=== PATIENT | female | born 1950 | race Caucasian/White ===

== ENCOUNTER 2016-04-18 16:26 | Emergency (ER) | payer MEDICARE, MEDICAID ==
[2016-04-18 17:26] VITALS: BP 121/79
[2016-04-18] MEDS ORDERED: Albuterol/Ipratropium NEB.SOL* Albuterol 2.5 MG/Ipratropium 0.5 MG 3 ML INH ONE (17:59)
--- NOTE | 2016-04-18 18:05 | UC ---
Throat Pain/Nasal Khalif HPI - HPI Summary HPI Summary: 65 YEAR OLD FEMALE WITH COMPLAINTS OF 1 WEEK OF SINUS PAIN AND PRESSURE, EAR PRESSURE, SORE THROAT AND HARSH COUGH. LAST EVENING STARTED WITH PRESSURE BEHIND HER EYES, BODY ACHES AND FEVER OF 102. DENIES CHEST PAIN OR DIFFICULTY BREATHING. STATES HER COUGH IS TIGHT AND FEELS WHEEZING AT TIMES. HEAVY EVERYDAY SMOKER - History of Current Complaint Chief Complaint: UCGI Stated Complaint: NAUSEA,FEVER,COUGH Time Seen by Provider: 04/18/16 17:51 Hx Obtained From: Patient ?: No Onset/Duration: Gradual Onset, Lasting Days - 7, Worse Since - LAST NIGHT Severity: Moderate Associated Signs & Symptoms: Positive: Dysphagia, Wheezing, Sinus Discomfort, Nasal Discharge, Fever. Negative: FB Sensation, Drooling, Hoarseness, Vomiting , Rash Related History: Smoking - Epiglottits Risk Factors Epiglottis Risk Factors: Negative - Allergies/Home Medications Allergies/Adverse Reactions: Allergies Allergy/AdvReac Type Severity Reaction Status Date / Time Amoxicillin Allergy Rash Verified 04/18/16 17:19 Home Medications: Home Medications Hydrocodone/APAP 5/300 (NF) [Vicodin 5 MG/300 MG(NF)] 1 tab BID 04/18/16 [ History Confirmed 04/18/16] PMH/Surg Hx/FS Hx/Imm Hx Previously Healthy: Yes Endocrine History Of: Denies: Diabetes, Thyroid Disease Cardiovascular History Of: Denies: Cardiac Disorders, Hypertension Respiratory History Of: Denies: COPD, Asthma GI/ History Of: Denies: Ulcer - Surgical History Surgical History: Yes Surgery Procedure, Year, and Place: 30 years ago - ovarian cyst removal. Carple Tunnel Release LEFT hand - Family History Known Family History: Positive: Diabetes - MOTHER Negative: Hypertension - Social History Occupation: Unemployed Lives: With Family Alcohol Use: None Substance Use Type: None Smoking Status (MU): Light Every Day Tobacco Smoker Type: Cigarettes Amount Used/How Often: "about a half pack per day" Length of Time of Smoking/Using Tobacco: 45+ years (used to smoke more than 1 PP Week) Have You Smoked in the Last Year: Yes Review of Systems Constitutional: Fever, Chills, Fatigue Skin: Negative Eyes: Negative ENT: Sore Throat, Ear Ache, Nasal Discharge, Other - SINUS PAIN AND PRESSURE Respiratory: Cough Cardiovascular: Negative Gastrointestinal: Negative Genitourinary: Negative Motor: Negative Neurovascular: Negative Musculoskeletal: Myalgia Neurological: Headache - SINUS Psychological: Negative All Other Systems Reviewed And Are Negative: Yes Physical Exam Triage Information Reviewed: Yes Appearance: No Pain Distress, Well-Nourished, Ill-Appearing - MILD Vital Signs: Initial Vital Signs Temp 97.4 F 04/18/16 17:21 Pulse 94 04/18/16 17:21 Resp 18 04/18/16 17:21 BP 121/79 04/18/16 17:21 Pulse Ox 98 04/18/16 17:21 Vital Signs Reviewed: Yes Eyes: Positive: Conjunctiva Clear. Negative: Discharge ENT: Positive: Pharyngeal erythema, Nasal congestion, TM dull - BILATERALLY, Other: - MAXILLARY AND FRONTAL SINUS PAIN AND PRESSURE. Negative: Nasal drainage, Tonsillar swelling Neck: Positive: Supple, Nontender, No Lymphadenopathy Respiratory: Positive: Lungs clear, Decreased breath sounds Cardiovascular: Positive: RRR, No Murmur Musculoskeletal: Positive: Strength Intact, ROM Intact, No Edema Neurological: Positive: Alert, Muscle Tone Normal Psychological: Positive: Age Appropriate Behavior - PLEASANT AND COOPERATIVE Skin: Negative: rashes, breakdown Throat Pain/Nasal Course/Dx - Course Assessment/Plan: DUO-NEB - with increased air movement and relief of pt tight cough. RAPID STREP - negative. RAPID FLU - negative - Differential Dx/Diagnosis Differential Diagnosis/HQI/PQRI: Pharyngitis, Sinusitis, URI, Other - INFLUENZA Provider Diagnoses: Sinusitis. Acute Bronchitis Discharge - Discharge Plan Condition: Stable Disposition: HOME Prescriptions: Albuterol HFA INHALER* [Ventolin HFA Inhaler*] 1 - 2 puff INH Q4H PRN #1 mdi PRN Reason: cough or wheezing Cefdinir 300 mg PO BID #20 cap predniSONE TAB* [Deltasone TAB*] 40 mg PO DAILY #10 tab Patient Education Materials: Sinusitis (ED), Acute Bronchitis (ED), How to Stop Smoking (ED)
== END 2016-04-18 18:56 | disposition home or self-care (01) ==
LOC: UCEAST 16:26
DX: J32.9 Chronic sinusitis, unspecified (principal); J20.9 Acute bronchitis, unspecified; Z88.0 Allergy status to penicillin; F17.210 Nicotine dependence, cigarettes, uncomplicated
CPT/HCPCS: 87502; 87651; 99212; A9270-GY; G0463

== ENCOUNTER 2016-04-21 09:23 | Emergency (ER) | payer MEDICARE, MEDICAID ==
[2016-04-21] MEDS ORDERED: Aspirin Low Dose CHEW TAB* 81 MG PO ONE (09:35)
[2016-04-21] MEDS ORDERED: Aspirin Low Dose CHEW TAB* 81 MG ONE ×2 (09:36)
[2016-04-21 09:41] LABS: Hematocrit 41 % (35-47); Hemoglobin 12.8 g/dl (12.0-16.0); Mean Corpuscular HGB Conc 31 g/dl (31-36); Mean Corpuscular Hemoglobin 31 pg (27-31); Mean Corpuscular Volume 99 fL (80-97); Red Blood Count 4.14 10^6/ul (4.0-5.4); Red Cell Distribution Width 13 % (10.5-15); White Blood Count 17.3 10^3/ul (3.5-10.8)
[2016-04-21] MEDS ORDERED: VERAPAMIL 2.5 MG/ML 4 ML VIAL ONE (09:44)
[2016-04-21] MEDS ORDERED: fentaNYL* 50 MCG/ML 2 ML VIAL (100 MCG VIAL) ONE (09:44)
[2016-04-21] MEDS ORDERED: Midazolam* 1 MG/ML 5 ML VIAL (5 MG) ONE (09:44)
[2016-04-21] MEDS ORDERED: Heparin(*) 1000 UNIT/ML 10 ML VIAL CATH LAB IV ONE (09:44)
[2016-04-21] MEDS ORDERED: nitroGLYCERIN DRIP* 250 ML ONE (09:45)
[2016-04-21] MEDS ORDERED: Heparin 2 UNITS/ML IVPREMIX* 3,000 ML IV ONE (09:45)
[2016-04-21] MEDS ORDERED: Iohexol 350 (CONTRAST) 200 ML MDV IV ONE (09:45)
[2016-04-21] MEDS ORDERED: Lidocaine 1% INJ* 10 MG/ML 30 ML SDV ONE (09:45)
[2016-04-21 09:50] LABS: Add Diff/Slide Review? Slide Review Added; Comments Flag Yes
--- NOTE | 2016-04-21 09:55 | RAD ---
INDICATION: Short of breath COMPARISON: None TECHNIQUE: An AP portable view obtained at 0945 hours is submitted. FINDINGS: Bones/Soft Tissues: There are no acute bony findings. Cardiomediastinal: The cardiomediastinal silhouette is mildly prominent. There is mild interstitial congestion Lungs: There are no infiltrates. Pleura: Suspect small bilateral pleural effusions. Other: None IMPRESSION: MILD INTERSTITIAL CONGESTION.
--- NOTE | 2016-04-21 09:56 | RAD ---
INDICATION: Short of breath. Hip injury. COMPARISON: None TECHNIQUE: A single AP view of the pelvis is submitted. FINDINGS: Osseous structures: No acute bony findings SI joints and symphysis: Intact Soft tissues: No soft tissue adenitis Other: None IMPRESSION: NO ACUTE PLAIN RADIOGRAPHIC ABNORMALITIES
[2016-04-21 09:58] LABS: ALT 192 U/L (7-52); Albumin 3.4 g/dL (3.2-5.2); Alkaline Phosphatase 152 U/L (34-104); BUN/Creatinine Ratio 29.3 (8-20); Blood Urea Nitrogen 56 mg/dL (6-24); Calcium 9.3 mg/dL (8.6-10.3); Chloride 80 mmol/L (101-111); Creatine Kinase 167 U/L (10-223); EGFR African American 34.1 (>60); EGFR Non-African American 26.5 (>60); LDL Cholesterol Direct 125 mg/dL; Total Protein 6.4 g/dL (6.4-8.9)
[2016-04-21] MEDS ORDERED: DOPamine 200 MG/250 ML IVPREM* 200 MG in PREMIX* 0 ML IV ONE (10:00)
[2016-04-21] MEDS ORDERED: DOPamine 200 MG/250 ML IVPREM* 200 MG/250 ML ML IV ONE (10:02)
[2016-04-21] MEDS ORDERED: NS 0.9% 1000 ML* 1,000 ML IV ONE ×2 (10:02)
[2016-04-21 10:16] VITALS: BP 89/78
[2016-04-21] MEDS ORDERED: Heparin 2 UNITS/ML IVPREMIX* 1,000 ML IV ONE (10:31)
[2016-04-21] MEDS ORDERED: Iodixanol* (CONTRAST) 320 MG/ML 100 ML SDV ONE (10:51)
[2016-04-21 10:52] LABS: PCO2 Arterial 43 mmHg (35-45)
[2016-04-21] MEDS ORDERED: Sodium Bicarbonate 8.4%* 50 ML SYRINGE ONE (10:57)
[2016-04-21] MEDS ORDERED: EPINEPHrine SYR 0.1 MG/ML* (1:10,000) SYRINGE ONE ×2 (11:01→11:09)
[2016-04-21] MEDS ORDERED: EPINEPHrine AMP 1 MG/ML ONE ×2 (11:01→11:08)
[2016-04-21] MEDS ORDERED: KCL 10 MEQ/50 ML IVPREMIX* 0 MEQ/0 ML BAG ONE (11:03)
[2016-04-21] MEDS ORDERED: Amiodarone IV VIAL* 3 ML ONE (11:04)
[2016-04-21 11:10] LABS: CO2 Carbon Dioxide 13 mmol/L (22-32); Glucose 929 mg/dL (70-100); Sodium 116 mmol/L (133-145); Troponin I 1.85 ng/mL (<0.04)
[2016-04-21] MEDS ORDERED: Sodium Bicarbonate 8.4% IV* 50 ML VIAL ONE (11:11)
--- NOTE | 2016-04-21 11:49 | CONSULT ---
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 ECG with concern for lateral lead STEMI and alert called. Continued workup with neg xray hip but concern for decreased sensation and poor pulses. Question arose about potential dissection and/or spinal cord infact even. Plan was for bean sprout laborer first and then can revisit ailments as proceeding forward with STEMI care. REVIEW OF SYSTEMS: As per HPI. PAST MEDICAL HISTORY: As per HPI. MEDICATIONS: Reviewed. ALLERGIES: Reviewed. SOCIAL HISTORY: Reviewed. FAMILY HISTORY: Noncontributory at present. PHYSICAL EXAM: Evaluated in lab with lines placed, already started on dopamine at 10. 15L face mask. Hr 60-80s, low sbp into 80s, rr ~20 or slightly less. temp 95F. Neurologic: awake, communicating but mild hypoxic encephalopathy. HEENT: cold to touch on her head; pupils reactive. pt still with c/o left hip pain but denied sob. mallipatti 3 Cardiovascular: regular, but again cold to touch and heart tones not apprecitated at this time give pt was in sterile field. Ext were quite cold as well. Respiratory: mild prolonged expiration but no dynamic wheeze anteriorly Abdomen: obese, cold to touch but not able to full palpate Extremities: cold, no edema Access: left femoral arterial and venous in place now LABS: were not back at time of eval IMAGING: ECG with lbbb and st up V4-6; CXR with mild interstial fluid and hip without fx. MEDICATIONS: Reviewed current. ASSESSMENT/PLAN: 65 F with STEMI to LAD/CIRC At time of my eval, cath revealing acute LAD occlusion. Pt in cardiogenic shock, mentating adequately for bean sprout laborer needs, ventilation is not completely compensated but tolerable at present that I wouldn't not risk early intubation with her current cardiac needs for which ppv would delay and likely harm her acute needs. She may very well need post intervention if she is unable to compensate. On dopamine already and plan to ready ICU bed for anticipated post revascularization care. D/w Dr. López and exited to allow him to work. Reviewing of the early labs at that time reveal an elevated troponin, elevated Cr, LA 11, inc lfts and bnp. All indicative of a cardigenic shock process already with significant time burden. During my review of the chart, called back emergently to bean sprout laborer as pt coded prior to intervening on LAD and cpr in progress. I co-managed code with Dr. López. ACLS protocol utilized and anesthesia kind enough to place an advance air way for us. Multiple rounds of epinephrine and revealed fine VT and we attempted defibrillation several times at 200J and to no avail. I ordered bicard for a buffer, and we instilled 300mg amio as well, and when this still did not work with loaded with lidcaine, still to no avail. ETCO2 was able to capture adequete cpr and we were sustaining a pulse with cpr but never regained pulse without. Went beyond 20mins of cpr to no avail and efforts ceased and pt pronounced. ON admission: [facility] STEMI To LAD Cardiogenic shock leading to cardiac arrest Mild hypoxic enephalopathy Acute hypoxic respiratory failure Acute ishemic hepatitis Acute lactic acidosis Acute renal failure Severe hyperglycemia Disposition: ; Dr. López will update family. Critical Care Time: 50min Devon Tovar DO
--- NOTE | 2016-04-21 20:07 | HP ---
HISTORY AND PHYSICAL/ SUMMARY: DATE OF ADMISSION: 04/21/16 DATE OF : 04/21/16 HISTORY OF PRESENT ILLNESS: A 65-year-old woman presenting to the ER with shock and EKG evidence of anterolateral ST-elevation infarct and left bundle branch block of unknown age. The patient was a fairly poor vague historian. She got all her health care from walk-in clinics. Apparently, a week ago, she was treated in the walk-in clinic with a diagnosis of bronchitis and was prescribed steroids, bronchodilator, and antibiotics. According to the youngest daughter, the patient had no cardiac history. This morning, at around 8 o'clock, she developed chest pressure and shortness of breath. She apparently subsequently fell. It was unclear to me how long she was down for. She was brought to the ER where she had no obtainable pulses even with Doppler apparently. She was started on 2 L volume infusion. As she apparently complained of left leg weakness and numbness, there was concern of cord injury or aortic dissection. When I saw her in the ER, she was complaining of mild chest tightness, was audibly wheezing. I could not palpate any peripheral pulses, she was cold and clammy. Lung exam while supine revealed lateral expiratory wheezing bilaterally. JVP was not visible, I could faintly palpate carotids. HEENT was grossly unremarkable. She was apparently oriented. Cardiac exam revealed very distant heart sounds. I could not hear any gallop, murmur, or rub. The abdomen was soft with bowel sounds, I could not feel the aorta. She had no rebound. Radial, femoral, and pedal pulses were not palpable. Her extremities were cold and dusky and diaphoretic. Dr. Hamm did very quick bedside ECHO look at the heart, which showed no gross pericardial effusion, and an enlarged very hypokinetic right ventricle. Previously, he had imaged the abdomen without any apparent evidence of aortic dissection or aneurysm. Her EKG showed a left bundle with concordant lateral ST elevation consistent with an acute ST- elevation infarct. Chest x-ray showed marked cardiomegaly with pulmonary venous redistribution. Pelvic XR showed no fracture. Her initial labs revealed a hemoglobin of 12.8 with a high white count, clumped platelets, sodium of 116 with the hemolyzed sample precluding measurement of potassium. Her chloride was low at 80, CO2 was low at 13. GFR was 26.5 with a creatinine of 1.9 with a BUN of 56. We had no previous labs. Her blood sugar was high at 929, lactic acid high at 11. Her LFTs were abnormal with a bilirubin of 1.7, SGPT 192, alkaline phosphatase 152. Her CPK 18.9, troponin 1.85, and BNP high at 3747. PAST MEDICAL HISTORY: Chronic shoulder pain for which she was on a narcotic, and recent bronchitis. According to the family and the patient, no known history of heart disease, diabetes, hyperlipidemia, or hypertension. PREHOSPITAL MEDICATIONS: 1. Narcotic analgesic. 2. Bronchodilator. 3. Antibiotic. 4. Steroids from Urgent Care. ALLERGIES: AMOXICILLIN. FAMILY HISTORY: Positive for diabetes. SOCIAL HISTORY: She was a smoker. REVIEW OF SYSTEMS: Limited by acuity of presentation. General: Apparently prior to this acute event, she had been ambulatory and independent. Pulmonary: See HPI. MANAGEMENT AND BUDGET ANALYST: No history of TIA or CVA. GI: No known history of peptic ulcer disease or bleeding. Circulatory: No known history of claudication, no history of acute back pain or pain in the roof of her mouth. PHYSICAL EXAMINATION As above. LABORATORY DATA: As above. IMPRESSION: 1. Acute anterior ST-elevation infarct with left bundle branch block of unknown age in the setting of cardiogenic shock without palpable pulses. Even though there was a blood pressure charted in the ER record, when I saw her, blood pressure was not measurable even with Doppler. Even though there was concern of cord injury or an orthopedic issue with her left leg status post her fall this morning, pelvis x- rays showed no acute fracture. Even though her history was somewhat perplexing because of the left-sided numbness and leg weakness, she clearly had an anterior ST- elevation infarct with cardiogenic shock. I discussed this frankly with the youngest daughter and the son at the bedside, explained that without intervention, a presentation of cardiogenic shock with infarct has a very high mortality and that the only hope for improved survival would be emergent catheterization and if feasible revascularization and that even though so, mortality is high. The daughter and son gave verbal consent. She was brought to the wharf laborer. 2. Multiorgan failure with renal insufficiency, abnormal liver function tests consistent with hypoperfusion for a significant period of time prior to presentation. 3. Morbid obesity. 4. Hyperglycemia without prior diagnosis of diabetes. 5. Left bundle branch block of unknown age, possible pre-existing cardiomyopathy given very high BNP versus acute left bundle branch block with extensive infarct. Hospital Course: She underwent cardiac cath via the R Femoral approach, had proximal LAD occlusion and moderate CxOM stenosis. RCA was not imaged as she decompensated before PCI of LAD could be performed. IABP was placed, she developed hypotension and bradycardia, PEA and VF. Inspite of intubation, CPR and resuscitation efforts she had no return of spontaneous circulation, and . [id number]/[facility] #: [id number] YESICA
--- NOTE | 2016-04-22 04:50 | CATH ---
CC: Bang López MD. CATH REPORT: DATE OF OPERATION: 04/21/16. DATE OF : 1950. PROCEDURES: Right common femoral artery and venous access with ultrasound guidance. Left heart catheterization, left coronary angiography, percutaneous intra-aortic balloon pump placement in right common femoral artery. HISTORY: A 65-year-old woman presenting with left bundle branch block of unknown age with evidence of anterior ST elevation infarct, cardiogenic shock without obtainable pulses in the ER. In the ER, she received volume loading and was emergently brought to the [facility] recognizing a dire prognosis. PROCEDURE: The right femoral artery and vein were imaged with ultrasound and a triple-lumen venous catheter was placed in the right femoral vein, a 6F-sheath in the right femoral artery without difficulty. Arterial blood gas drawn and sent. No pulse was palpable. I suspect the noninvasively recorded pressures were erroneous. Dopamine 10 microgram/kg/minute was started as soon the sheath was placed. The first arterial pressure was 111/59 on dopamine 10 microgram/kg/ minute. A 6FVL 3.5 guide was then introduced over J-wire, positioned in the ascending aorta. It easily crossed into the LV where LV pressure was recorded at 92/33-45 without aortic valve gradient on pull back. The catheter was then engaged in the left main without dampening and the left coronary injection was obtained. The guide was pulled back right to the ostium without dampening as the catheter was similar in size to the left main. A 14 BMW wire was then advanced easily across the occlusion after the patient was given heparin 6000 units. The guide catheter tip was kept at the ostium of the left main to avoid interruption of flow in the left main. As I was reviewing the angiogram to plan the revascularization, she became bradycardic and hypotensive, dopamine was increased. She was given IV epinephrine. She developed PEA and CPR was started. The left coronary catheter was removed, and an intra-aortic balloon pump was placed throughout that access site and augmentation was started at 1: 1. She was bagged, Dr. Tovar returned, and together with Anesthesia, intubated the patient. We then co-managed the code. She had recurring episodes of VF, had over 20 minutes of no spontaneous rhythm. She was pronounced at 11:14. MEDICATIONS DURING THE PROCEDURE: Included aspirin in the ER, IV dopamine, IV Versed, heparin 6000 units, IV epinephrine, IV sodium bicarb, IV amiodarone 300 mg, IV lidocaine 100 mg. DIAGNOSTIC CATHETER: 5FL 3.5, guiding catheter 6FL 3.5, wire 14 BMW. ANGIOGRAPHY: Left main: Left main is relatively long, relatively small in caliber, but without stenosis. LAD: LAD is moderate, occluded after the first septal without any distal fill. CIRCUMFLEX: Not dominant, there is a high marginal, which had a tubular 60% stenosis. The AV groove to circumflex supplies a small posterolateral branch. The RCA was not injected because the patient decompensated. HEMODYNAMICS: As above. IMPRESSION: Extensive anterior wall ST elevation infarct with left bundle branch block of unknown age with cardiogenic shock on presentation. The patient had hemodynamic deterioration and after unsuccessful resuscitation efforts including CPR, pharmacologic resuscitation, and intra- aortic balloon pump counter pulsation. [id number]/[id number] #: [id number] MTDD
--- NOTE | 2016-04-22 08:00 | ED ---
Janis West Matthew, scribed for Tom Hamm MD on 04/21/16 at 0943 . HPI Cardiac - HPI Summary HPI Summary: A 65 y/o female presents to the ED with SOB since 4-5 days ago, which worsened in the last hour. She was at [facility] 10 days ago, where she was Dx with bronchitis and Rx Augmentin. The symptoms continued to worsen over the last 4-5 days, which prompted her to present to the ED today. While attempting to come to the ED, she fell for ~30 minutes. She is also c/o left hip pain that started before the fall and is rated 8/10 in severity. Associated symptoms include decreased sensation of the LLE. The patient denies nausea, vomiting, chest pain, and diarrhea. The patient did not take aspirin [facility]. - History of Current Complaint Chief Complaint: ED Stated Complaint: STEMI Hx Obtained From: Patient Onset/Duration: Traumatic, Still Present Timing: Constant Initial Severity: Moderate Current Severity: Moderate Pain Intensity: 8 Pain Scale Used: 0-10 Numeric Chest Pain Radiates: No Aggravating Factor(s): Nothing Alleviating Factor(s): Nothing Associated Signs and Symptoms: Positive: Shortness of Breath, Other: - Diaphoresis; Decreased sensation of the LLE. Negative: Chest Pain, Nausea, Vomiting - Allergy/Home Medications Allergies/Adverse Reactions: Allergies Allergy/AdvReac Type Severity Reaction Status Date / Time Amoxicillin Allergy Rash Verified 04/18/16 17:19 PMH/Surg Hx/FS Hx/Imm Hx Endocrine/Hematology History: Denies: Hx Diabetes, Hx Thyroid Disease Cardiovascular History: Denies: Hx Hypertension Respiratory History: Denies: Hx Asthma, Hx Chronic Obstructive Pulmonary Disease (COPD) GI History: Denies: Hx Ulcer - Cancer History Cancer Type, Location and Year: none per patient. (recently treated for bronchitis, still taking z-irena but feeling better) - Surgical History Surgery Procedure, Year, and Place: 30 years ago - ovarian cyst removal. Carple Tunnel Release LEFT hand Infectious Disease History: Denies: Hx Clostridium Difficile, Hx Hepatitis, Hx Human Immunodeficiency Virus (HIV), Hx of Known/Suspected MRSA, Hx Shingles, Hx Tuberculosis, Hx Known/ Suspected VRE, Hx Known/Suspected VRSA, History Other Infectious Disease, Traveled Outside the [place] in Last 30 Days - Family History Known Family History: Positive: Diabetes - MOTHER Negative: Hypertension - Social History Alcohol Use: None Substance Use Type: Reports: None Smoking Status (MU): Light Every Day Tobacco Smoker Type: Cigarettes Amount Used/How Often: "about a half pack per day" Length of Time of Smoking/Using Tobacco: 45+ years (used to smoke more than 1 PP Week) Have You Smoked in the Last Year: Yes Review of Systems Positive: Skin Diaphoresis ENT: Negative Cardiovascular: Negative Negative: Chest Pain Positive: Shortness Of Breath Gastrointestinal: Negative Negative: Abdominal Pain, Vomiting, Diarrhea, Nausea Genitourinary: Negative Positive: Myalgia - left hip pain Skin: Negative Neurological: Other - decreased sensation of the LLE Psychological: Normal All Other Systems Reviewed And Are Negative: Yes Physical Exam - Summary Physical Exam Summary: GENERAL: Severely ill-appearing, pale, diaphoretic, speaks in full sentences HEENT: Head is normocephalic, atraumatic, anicteric sclera, clear conjunctiva, mucous membranes moist, no erythema, no discharge, no lesions, neck is supple, trachea is midline, no JVD CARDIAC: Regular rate and rhythm, distant heart sounds, 2+ radial pulses at presentation, unable to obtain pulses or signal in lowerextremities bilaterallythready, bedside ultrasound no pericardial effusion seen RESPIRATORY: Diffuse wheezes, symmetric excursion, good aeration, no crackles ABDOMEN: Bowel sounds positive, no bruit, soft, non-tender, no masses, bedside ultrasound, no free fluid, unremarkable aorta, no aneurysm seen EXTREMITIES: No edema, equal temperature, cool, left lower extremity patchy reticular mottle to medial/ posterior thigh. no spinal tenderness NEUROLOGICAL: CN II-XII intact, 5/5 strengh flexor and extensors biltateral UE; lower extrem 4/5 flexor/ extensor on the right, and 3/ 5 on left. no pain with passive rang of motion bilateral hips. no Decreased sensation to light touch LLE. Decreased sensation to light touch left abdomen, not crossing midline up to 2 inches above umbilicus. 1 + dtr's throughout abdomen. Triage Information Reviewed: Yes Vital Signs On Initial Exam: Initial Vitals Temp Pulse Resp BP Pulse Ox 86.5 F 106 24 106/95 0 04/21/16 09:28 04/21/16 09:28 04/21/16 09:28 04/21/16 09:28 04/21/16 09:28 Vital Signs Reviewed: Yes Procedures - Ultrasound Ultrasound: normal - Bed sided US of the abdomen; no free fuild or aneurysm noted. Diagnostics - Vital Signs Vital Signs Temp Pulse Resp BP Pulse Ox 04/21/16 09:28 86.5 F 106 24 106/95 0 - Laboratory Lab Results: Lab Results 04/21/16 04/21/16 04/21/16 Range/Units 09:36 09:36 09:36 WBC 17.3 H (3.5-10.8) 10^3/ul RBC 4.14 (4.0-5.4) 10^6/ul Hgb 12.8 (12.0-16.0) g/dl Hct 41 (35-47) % MCV 99 H (80-97) fL MCH 31 (27-31) pg MCHC 31 (31-36) g/dl RDW 13 (10.5-15) % Plt Count (150-450) 10^3/ul MPV [employer] Specialist Neut % (Auto) 84.0 H (38-83) % Lymph % (Auto) 7.8 L (25-47) % [place] % (Auto) 8.1 (1-9) % Eos % (Auto) 0 (0-6) % Baso % (Auto) 0.1 (0-2) % Absolute Neuts (auto) 14.5 H (1.5-7.7) 10^3/ul Absolute Lymphs (auto) 1.3 (1.0-4.8) 10^3/ul Absolute Monos (auto) 1.4 H (0-0.8) 10^3/ul Absolute Eos (auto) 0 (0-0.6) 10^3/ul Absolute Basos (auto) 0 (0-0.2) 10^3/ul Absolute Nucleated RBC 0.09 10^3/ul Nucleated RBC % 0.5 INR (Anticoag Therapy) 1.25 H (0.89-1.11) APTT 19.0 L (26.0-36.3) seconds ABG pH (7.35-7.45) ABG pCO2 (35-45) mmHg ABG pO2 (80-100) mmHg ABG HCO3 (19-31) mmol/L ABG O2 Saturation (95-98) % ABG Base Excess (-2.0-2.0) Sodium 116 L* (133-145) mmol/L Potassium TNP Chloride 80 L (101-111) mmol/L Carbon Dioxide 13 L* (22-32) mmol/L Anion Gap TNP BUN 56 H (6-24) mg/dL Creatinine 1.91 H (0.51-0.95) mg/dL Est GFR ( Amer) 34.1 (>60) Est GFR (Non-Af Amer) 26.5 (>60) BUN/Creatinine Ratio 29.3 H (8-20) Glucose 929 H* (70-100) mg/dL POC Glucose (mg/dL) (74-106) mg/dL Lactic Acid (0.5-2.0) mmol/L Calcium 9.3 (8.6-10.3) mg/dL Total Bilirubin 1.70 H (0.2-1.0) mg/dL AST TNP ALT 192 H (7-52) U/L Alkaline Phosphatase 152 H (34-104) U/L Total Creatine Kinase 167 (10-223) U/L CK-MB (CK-2) 18.9 H (0.6-6.3) ng/mL Troponin I 1.85 H* (<0.04) ng/mL B-Natriuretic Peptide ( - 100) pg/mL Total Protein 6.4 (6.4-8.9) g/dL Albumin 3.4 (3.2-5.2) g/dL Globulin 3.0 (2-4) g/dL Albumin/Globulin Ratio 1.1 (1-3) LDL Cholesterol Direct 125 mg/dL 04/21/16 04/21/16 04/21/16 Range/Units 09:36 09:36 09:44 WBC (3.5-10.8) 10^3/ul RBC (4.0-5.4) 10^6/ul Hgb (12.0-16.0) g/dl Hct (35-47) % MCV (80-97) fL MCH (27-31) pg MCHC (31-36) g/dl RDW (10.5-15) % Plt Count (150-450) 10^3/ul MPV Neut % (Auto) (38-83) % Lymph % (Auto) (25-47) % [place] % (Auto) (1-9) % Eos % (Auto) (0-6) % Baso % (Auto) (0-2) % Absolute Neuts (auto) (1.5-7.7) 10^3/ul Absolute Lymphs (auto) (1.0-4.8) 10^3/ul Absolute Monos (auto) (0-0.8) 10^3/ul Absolute Eos (auto) (0-0.6) 10^3/ul Absolute Basos (auto) (0-0.2) 10^3/ul Absolute Nucleated RBC 10^3/ul Nucleated RBC % INR (Anticoag Therapy) (0.89-1.11) APTT (26.0-36.3) seconds ABG pH (7.35-7.45) ABG pCO2 (35-45) mmHg ABG pO2 (80-100) mmHg ABG HCO3 (19-31) mmol/L ABG O2 Saturation (95-98) % ABG Base Excess (-2.0-2.0) Sodium (133-145) mmol/L Potassium Chloride (101-111) mmol/L Carbon Dioxide (22-32) mmol/L Anion Gap BUN (6-24) mg/dL Creatinine (0.51-0.95) mg/dL Est GFR ( Amer) (>60) Est GFR (Non-Af Amer) (>60) BUN/Creatinine Ratio (8-20) Glucose (70-100) mg/dL POC Glucose (mg/dL) > 444 H* (74-106) mg/dL Lactic Acid 11.0 H* (0.5-2.0) mmol/L Calcium (8.6-10.3) mg/dL Total Bilirubin (0.2-1.0) mg/dL AST ALT (7-52) U/L Alkaline Phosphatase (34-104) U/L Total Creatine Kinase (10-223) U/L CK-MB (CK-2) (0.6-6.3) ng/mL Troponin I (<0.04) ng/mL B-Natriuretic Peptide 3747 H ( - 100) pg/mL Total Protein (6.4-8.9) g/dL Albumin (3.2-5.2) g/dL Globulin (2-4) g/dL Albumin/Globulin Ratio (1-3) LDL Cholesterol Direct mg/dL 04/21/16 Range/Units 10:40 WBC (3.5-10.8) 10^3/ul RBC (4.0-5.4) 10^6/ul Hgb (12.0-16.0) g/dl Hct (35-47) % MCV (80-97) fL MCH (27-31) pg MCHC (31-36) g/dl RDW (10.5-15) % Plt Count (150-450) 10^3/ul MPV Neut % (Auto) (38-83) % Lymph % (Auto) (25-47) % [place] % (Auto) (1-9) % Eos % (Auto) (0-6) % Baso % (Auto) (0-2) % Absolute Neuts (auto) (1.5-7.7) 10^3/ul Absolute Lymphs (auto) (1.0-4.8) 10^3/ul Absolute Monos (auto) (0-0.8) 10^3/ul Absolute Eos (auto) (0-0.6) 10^3/ul Absolute Basos (auto) (0-0.2) 10^3/ul Absolute Nucleated RBC 10^3/ul Nucleated RBC % INR (Anticoag Therapy) (0.89-1.11) APTT (26.0-36.3) seconds ABG pH 7.00 L* (7.35-7.45) ABG pCO2 43 (35-45) mmHg ABG pO2 119 H (80-100) mmHg ABG HCO3 9.1 L* (19-31) mmol/L ABG O2 Saturation 98.2 H (95-98) % ABG Base Excess -20.2 L (-2.0-2.0) Sodium (133-145) mmol/L Potassium Chloride (101-111) mmol/L Carbon Dioxide (22-32) mmol/L Anion Gap BUN (6-24) mg/dL Creatinine (0.51-0.95) mg/dL Est GFR ( Amer) (>60) Est GFR (Non-Af Amer) (>60) BUN/Creatinine Ratio (8-20) Glucose (70-100) mg/dL POC Glucose (mg/dL) (74-106) mg/dL Lactic Acid (0.5-2.0) mmol/L Calcium (8.6-10.3) mg/dL Total Bilirubin (0.2-1.0) mg/dL AST ALT (7-52) U/L Alkaline Phosphatase (34-104) U/L Total Creatine Kinase (10-223) U/L CK-MB (CK-2) (0.6-6.3) ng/mL Troponin I (<0.04) ng/mL B-Natriuretic Peptide ( - 100) pg/mL Total Protein (6.4-8.9) g/dL Albumin (3.2-5.2) g/dL Globulin (2-4) g/dL Albumin/Globulin Ratio (1-3) LDL Cholesterol Direct mg/dL Result Diagrams: 04/21/16 09:36 04/21/16 09:36 Lab Statement: Any lab studies that have been ordered have been reviewed, and results considered in the medical decision making process. - Radiology CXR Xray Interpretation: Positive (See Comments) - IMPRESSION: MILD INTERSTITIAL CONGESTION. Radiology Interpretation Completed By: Radiologist Pelvis XR Xray Interpretation: No Acute Changes - IMPRESSION: NO ACUTE PLAIN RADIOGRAPHIC ABNORMALITIES Radiology Interpretation Completed By: Radiologist - EKG 09:23 Cardiac Rate: Tachycardia - 106 bpm EKG Rhythm: Sinus Rhythm EKG Interpretation: SETMI V5, V6 diffuse ST elevations Disposition - Course Course Of Treatment: 65 year old female with STEMI called 5 minutes prior to patients arrival base on EMS assesment. Patient complains of left hip pain, and inability to move left ankle, presenting with bp of 106 sys, focal neuro deficits and atypical complaints for stemi. Given the atypical presentation and physical, I obtained pelvis an chest xray which showed no fracture and no obvious dissection. Patient denied head trauma. As Dr López was enroute, I contacted Dr. Holder and discussed the case in full. He agreed that a conditions such as dissection of aorta or spinal artery dissedtion or throumbus are within the differential and, as such,recommended, delaying heparin until Dr. López arrival. I did not think the patient stable for transport to ct , nor did I want to use up her dye load in a study without discussion with Dr. López. Dr. Holder concurred with this. Difficulty obtaining temperature and O2 sat throughout her time, here. A shi temp probe was necessary. Attempts to obtain peripheral dopplers were unsuccesful. A recheck of fem pulses which were present on arrival were now absent, thready radial pulses present. Repeat blood pressure was in the mid 86 at this time and I ordered dopamine and fluid boluses be started. BNP resulted in 3000's. Dr. López arrived evaluated the the patient agreed with atypical presentation and physical findings. Fluids were held and he concluded patient should go immediately to [facility] for cardiac eval as first priority. She was then taken to the [facility]. I counseled the family regarding the situation and plan of care. Assessment/Plan: Dr. López will take the patient to the catheterization lab. - Differential Dx - Cardiopulmonary Differential Diagnoses - Cardiopulmonary: Other - sepsis - Diagnoses Provider Diagnoses: STEMI (ST elevation myocardial infarction), Hypotension, Neurological deficit present During the Visit The Following Alert/Code Occurred: STEMI - Physician Notifications Discussed Care Of Patient With: Dr. López (Interventionalist) at 09:31 -- Notified of patient's history after STEMI alert. Dr. Tovar (ICU) at 09:50 -- Notified of patient's history and recommneds Rene evaluates the patient. Dr. Tovar (ICU) at 10:23 -- Contacted Dr. Tovar and discussed that he should strongly consider Abx. Discharge - Discharge Plan Condition: Critical Disposition: Referrals: No Primary Care Phys,NOPCP [Primary Care Provider] - The documentation as recorded by the Janis henderson Matthew accurately reflects the service I personally performed and the decisions made by me, Tom Hamm MD.
== END 2016-04-21 11:14 | disposition expired ==
LOC: ED 09:23
DX: I21.3 ST elevation (STEMI) myocardial infarction of unspecified site (principal); R57.0 Cardiogenic shock; J96.01 Acute respiratory failure with hypoxia; R73.9 Hyperglycemia, unspecified; E87.2 Acidosis; F17.210 Nicotine dependence, cigarettes, uncomplicated; M25.552 Pain in left hip; R61 Generalized hyperhidrosis
CPT/HCPCS: 36415; 71010; 72170; 80053; 82550; 82553; 82803; 83605; 83721; 83880; 84484; 85025; 85610; 85730; 92950; 93005; 96374; 99285; A9270-GY; C1725; C1769; C1887; J0171; J0282; J1265; J1644; J2250; J3010; J3480